=== PATIENT | male | born 1985 | race Caucasian/White ===

== ENCOUNTER 2020-08-05 17:25 | Emergency (ER) | payer MEDICAID, SELFPAY ==
[2020-08-05 17:45] VITALS: BP 113/59; PULSE 70; RESP 18; TEMP 37.5; O2SAT 96
--- NOTE | 2020-08-05 17:58 | ED.EYEPROB ---
HPI - Eye Problem General Chief complaint: Eye Problems Stated complaint: fb in right eye Time Seen by Provider: 08/05/20 17:58 Source: patient and RN notes reviewed History of Present Illness HPI Narrative: Patient is a 34-year-old male who presents the urgent care with complaints of a possible foreign body to the right eye. Patient states that he was cutting wood today without eye protection and believes he got something in his eye. Patient states he has tried to flush it out without any improvement. Patient denies of any blunt force trauma to the eye. Denies of any vision changes. No other acute complaints. No acute distress noted. Patient aware of the plan of care. Some parts of this dictation were generated by voice recognition software and may contain typographical and/or grammatical inaccuracies. Related Data Allergies Allergy/AdvReac Type Severity Reaction Status Date / Time No Known Allergies Allergy Verified 08/05/20 18:01 Review of Systems Review of Systems: Narrative: CONSTITUTIONAL: Denies fever, chills, or sweats. EYES: Reports a foreign body in the right eye ENT: Denies rhinorrhea, congestion, sore throat, or otalgia. CARDIOVASCULAR: Denies chest pain, palpitations, or edema. RESPIRATORY: Denies cough or dyspnea. GASTROINTESTINAL: Denies abdominal pain, nausea, vomiting, or diarrhea. GENITOURINARY: Denies dysuria or hematuria. SKIN: Denies rash or itching. MUSCULOSKELETAL: Denies back pain, joint pain, or myalgia. NEUROLOGIC: Denies headache, numbness, or weakness. All other systems reviewed are negative, except as documented in HPI. PMFSH Comments At the time of my signature, I reviewed and agree with the nursing past medical, surgical, social, and family history. There is no relevant family history pertinent to the patient complaint. Exam Narrative: Exam Narrative: GENERAL: This is a well-nourished, well-developed patient, in no apparent distress. HEAD: normocephalic, atraumatic. EYES: PERRL. Sclera clear/white. Vision is grossly intact. Moderate injected conjunctivo-noted to the right without obvious foreign body seen with the naked eye EARS: External ears normal NOSE: External nose normal with no obvious nasal discharge, nares without redness, no rhinorrhea. THROAT: Mucous membranes moist NECK: Neck supple SKIN: warm, intact with no suspicious lesions or rash, good texture and turgor. NEURO: awake, alert, and oriented to person, place and time. There were no obvious focal neurologic abnormalities. EXTREMITIES: No clubbing, cyanosis, or edema. Course Vital Signs Vital signs: Vital Signs Temperature 99.5 F 08/05/20 17:45 Pulse Rate 70 08/05/20 17:45 Respiratory Rate 18 08/05/20 17:45 Blood Pressure 113/59 L 08/05/20 17:45 Pulse Oximetry 96 08/05/20 17:45 Temperature 99.5 F 08/05/20 17:45 Pulse Rate 70 08/05/20 17:45 Respiratory Rate 18 08/05/20 17:45 Blood Pressure 113/59 L 08/05/20 17:45 Pulse Oximetry 96 08/05/20 17:45 Reviewed Procedures FB Removal Eye Foreign Body #1: Location: eye (R) Topical anesthetic used: tetracaine Foreign body: wood Evidence of corneal penetration: No Technique: irrigation and cotton tip swab Procedure performed under: other (Blacklight) Patient tolerated procedure: well Foreign Body Removal Narrative: I irrigated prior to procedure, tetracaine and fluorescein applied. Small speck of foreign body removed from the right eye with a Q-tip. Irrigated post procedure. Patient tolerated well and has full relief of pain. Very small 0.25 cm possible corneal abrasion to the medial right of the iris. No corneal penetration. Procedure successful MDM - Eye Problem MDM Narrative Medical decision making narrative: Advised the patient to use the eyewash once a day for the next few days. Use the eyedrops to the right eye as directed. Make sure to wear safety glasses in the future while doing any
== END 2020-08-05 18:20 | disposition home or self-care (01) ==
PROVIDERS: Emergency Provider Nurse Practitioner Family; PCP Family Medicine
DX: S05.01XA Injury of conjunctiva and corneal abrasion without foreign body, right eye, initial encounter (principal); X58.XXXA Exposure to other specified factors, initial encounter; T15.91XA Foreign body on external eye, part unspecified, right eye, initial encounter
CPT/HCPCS: 65205; 99213; A9270; G0463

== ENCOUNTER 2025-09-18 15:19 | Emergency (ER) | payer BC, SELFPAY ==
--- OUTSIDE RECORDS SUMMARY | 2002-12-01 04:45 | XMS_ITS | Continuity of Care Document ---
Author Organization [facility] Address [address] [place] [address] Phone Care Team Providers Care Key Account Coordinator Name Role Phone Ibarra OD, Quinton Unavailable Unavailable Advance Directives Directive Yes / No Effective Date File Name No Information Encounters Encounter Description Practice Location Reason(s) For Visit Diagnoses Date Provider Providers Copied on Encounter [facility], [address], [place], [place], [id number], [place] tel:[phone] [facility] No Information 1-200 3 Ibarra OD Quinton. [address] , [address], [place], [address], [place]. tel:[phone] Family History Family Member Type Diagnosis Age At Onset No Information Payers Payer name Insurance type Covered republican ID Authoriza tion(s) Medicaid [facility] [id number] Social History Type Description Quantity Date Captured Comments Sex Male Smoking Status No Information Chief Complaint And Reason For Visit No Information Reason For Referral Reason For Referral No Information History Of Present Illness Encounter Date Complaint History Of Prese nt Illness No Information Functional Status Date Functional Assessmen t No Information Instructions Date Instruction Additional Infor mation No Information Assessments Type Assessment Date No Information Patient Care Teams Name Effective Dates (start - stop) Status Members No Information
--- OUTSIDE RECORDS SUMMARY | 2002-12-01 04:45 | XMS_ITS | Continuity of Care Document ---
Author Organization [facility] Address [address] [place] [address] Phone Care Team Providers Care Sanitation Lead Name Role Phone Ibarra OD, Quinton Unavailable Unavailable Advance Directives Directive Yes / No Effective Date File Name No Information Encounters Encounter Description Practice Location Reason(s) For Visit Diagnoses Date Provider Providers Copied on Encounter [facility], [address], [place], [place], [id number], [place] tel:[phone] [facility] No Information 1-200 3 Ibarra OD Quinton. [address] , [address], [place], [address], [place]. tel:[phone] Family History Family Member Type Diagnosis Age At Onset No Information Payers Payer name Insurance type Covered constitution party ID Authoriza tion(s) Medicaid [facility] [id number] Social History Type Description Quantity Date Captured [...]
--- OUTSIDE RECORDS SUMMARY | 2018-05-09 06:15 | XMS_ITS | Continuity of Care Document ---
Author Organization [facility] Address [address] [facility] [address] [place] [address] Phone Care Team Providers Care Associate Professor Name Role Phone Collin Sarah MD Unavailable Unavailable Allergies, Adverse Reactions, Alerts Substance Reaction Status Criticality No Known Drug Allergies Active No I nformation Medications Medication Instructions Dosage Effective Dates (start - stop) Status Comments hydrocodone 5 mg-acetaminophen 325 mg tablet take 1 - 2 by Oral route q 4-6 hr prn 1-2 - Active ibuprofen 200 mg tablet take 1 tablet by oral route every 6 hours as needed with food 200 MG - Active Naprosyn 500 mg tablet take 1 tablet by oral route 2 times every day with food 500 MG - No Longer Active Procedures Procedure Date Supplemental Report Office/outpatient visit,est, mod 2017 Flex Bar Yellow Supplemental Report Office/outpatient visit,est, mod 2017 Supplemental Report Office/outpatient visit,est, mod 2017 Supplemental Report Office/outpatient visit,est, mod 2017 Office/outpatient visit,est, mod 2017 Supplemental Report Global/Postop followup visit Supplemental Report 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 msclgrp Depo Medrol Methylprednisolone 40 MG inj Global/Postop followup visit Supplemental Report Injection, tendon origin/insertion Depo Medrol Methylprednisolone 40 MG inj Supplemental Report Global/Postop followup visit Supplemental Report Global/Postop followup visit Supplemental Report Global/Postop followup visit Monroe Wrap 3 Gauze <= 16 sq in w/border 2x3 17 Supplemental Report Office/outpatient visit,est, mod 2016 Supplemental Report Office/outpatient visit,est, mod 2016 X-ray exam elbow, 3+ views Office consultation, moderate 7 Injection, tendon origin/insertion Injection, tendon origin/insertion Depo Medrol Methylprednisolone 40 MG inj Advance Directives Directive Yes / No Effective Date File Name No Information Encounters Encounter Description Practice Location Reason(s) For Visit Diagnoses Date Provider Providers Copied on Encounter Office/outpat ient visit,est, [facility], [address] [place] [address], [id number], [place] tel:[phone] [facility] R ELBOW (chief complaint) Lateral epicondylitis , right elbow 8 Keara Polanco. [address] [place] [address], [id number] , [place]. tel:[phone] Referring Provider: Collin Aguirre, [address] [place] [address], [address] . tel:[phone] Office/outpat ient visit,est, [place] [facility], [address] [place] [address], [id number], [place] tel:[phone] [facility] right elbow (chief complaint) Lateral epicondylitis , right elbow 8 Keara Polanco. [address] [place] [address], [address], [id number] , [place]. tel:[phone] Office/outpat ient visit,est, [facility], [address] [address], [place], [place], [id number], [place] tel:[phone] [facility] RIGHT ELBOW (chief complaint) Lateral epicondylitis , right elbow Apr-1 1-201 8 Keara Collin. [address] [facility] [address], [place], [place], [id number] , [place]. tel: [phone] Office/outpat ient visit,est, [facility], [address] [address], [place], [place], [id number], [place] tel:[phone] [facility] r elbow (chief complaint) Pain in right elbowLateral epicondylitis , right elbowLesion of radial nerve, right upper limb Apr-0 5-201 8 Keara Collin. [facility], [address], [id number] , [place]. tel: [phone] Office/outpat ient visit,est, [facility], [address] [address], [place], [place], [id number], [place] tel:[phone] [facility] r elbow (chief complaint) Lateral epicondylitis , right elbow Feb-0 6-201 8 Sarah Collin. [address] [place] [address], [address] [address], [place], [place], [id number] , [place]. tel: [phone] [facility], [address] [place] [address], [id number], [place] tel:[phone] [facility] RIGHT ELBOW (chief complaint) Lesion of radial nerve, right upper limbLateral epicondylitis , right elbowPain in right elbow Jabari-0 4-201 8 Keara Collin. [address] [place] [address], [address], [id number] , [place]. tel: [phone] [facility], [address] [place] [address], [id number], [place] [phone] [facility] right elbow (chief complaint) Pain in right elbowLesion of radial nerve, right upper limbLateral epicondylitis , right elbow Dec-0 6-201 7 Keara Polanco. [address] [facility], [address], [place], [place], [id number] , [place]. tel: [phone] [facility], [address] [address], [place], [place], [id number], [place] tel:[phone] [facility] R ELBOW (chief complaint) Pain in right elbowLateral epicondylitis , right elbowLesion of radial nerve, right upper limb Nov-2 7 Keara Polanco. [address] [facility], [address], [place], [place], [id number] , [place]. tel: [phone] [facility], [address] [address], [place], [place], [id number], [place] tel:[phone] [facility] Lesion of radial nerve, right upper limbPain in right elbowLateral epicondylitis , right elbow Oct-3 7 Keara Polanco. [address] [facility], [address] [address], [place], [place], [id number] , [place]. tel: [phone] [facility], [address], [id number], [place] tel:[phone] [facility] R FOREARM (chief complaint) Lesion of radial nerve, right upper limb Aug- 7 Keara Polanco. [address] [facility], [facility] [address], [place], [place], [id number] , [place]. tel: [phone] Office/outpat ient visit,est, [facility], [address] [address], [place], [place], [id number], [place] tel:[phone] [facility] R THUMB (chief complaint) Pain in right elbowLesion of radial nerve, right upper limbLateral epicondylitis , right elbow Sep-2 7 Keara Polanco. [address] [facility], [facility] [address], [place], [place], [id number] , [place]. tel: [phone] Office/outpat ient visit,est, mod [facility], [address] [place], [id number], tel:[phone] [facility] right elbow (chief complaint) Lesion of radial nerve, right upper limb Keara Polanco. [address] [facility], [address] [address], [place], [place], [id number] , [place]. tel:[phone] Office consultation, moderate [facility], [address], [id number], tel:[phone] [facility] r elbow (chief complaint) Pain in right elbowLateral epicondylitis , right elbowLesion of radial nerve, right upper limb Keara Polanco. [address] [place] [address], [place], [place], [id number] , [place]. tel:[phone] Referring Provider: Collin Aguirre, [address] [place] [address], [place], [address] . tel:[phone] Family History Family Member Type Diagnosis Age At Onset Father Problem (finding) hypertension Mother Problem (finding) malignant neop lasm of breast in first degree relative Father Problem (finding) seizure disorder Father Problem (finding) Arthritis Father Problem (finding) Cardiovascular disease Payers Payer name Insurance type Covered constitution party ID Authoraugiea kyle(s) [employer] [id number] Social History Type Description Quantity Date Captured Comments Alcohol Use Details Unknown Caffeine Use Details Unknown Tobacco Use Status No Information Smoking Status No Information Sex Male Chief Complaint And Reason For Visit From encounter dated '05/09/2018 11:15'. R ELBOW (chief complaint). Description: F/U RIGHT ELBOW EVALUATION Reason For Referral Reason For Referral No Information Plan Of Treatment Date Type Action Status Referral Ordered: MRI Upper extr joint, w/o contrast RT elbow Appointment date/timeframe: 02/24/2018 ordered Referral Ordered: EMG NCS RT arm Appointment date/timeframe: 08/15/2017 ordered Referral Ordered: X-ray exam elbow, 3+ views RT ordered History Of Present Illness Encounter Date Complaint History Of Prese nt Illness R ELBOW F/U RIGHT ELBOW EVALUATION right elbow f/u evaluation RIGHT ELBOW F/U TEST RESULTS r elbow f/u evaluation r elbow r elbow RIGHT ELBOW F/U EVALUATION right elbow right elbow R ELBOW R FOREARM BANDAGE CHANGE R THUMB PATIENT DOING WE LL right elbow right elbow pain r elbow Functional Status Date Functional Assessmen t No Information Instructions Date Instruction Additional Infor mation No Information Assessments Type Assessment Date assessment Lateral epicondylitis, right elb ow Patient Care Teams Name Effective Dates (start - stop) Status Members No Information
--- OUTSIDE RECORDS SUMMARY | 2018-05-09 06:15 | XMS_ITS | Continuity of Care Document ---
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 [address] [place] [address], [id number] , [place]. tel:[phone] Referring Provider: Collin Aguirre, [address] [place] [address], [address] . tel:[phone] Office/outpat ient visit,est, [employer] [facility], [address] [place] [address], [id number], [place] tel:[phone] [facility] right elbow (chief complaint) Lateral epicondylitis , right elbow 8 Keara Polanco. [address] [place] [address], [address], [id number] , [place]. tel:[phone] Office/outpat ient visit,est, [facility], [address] [address], [place], [place], [id number], [place] tel:[phone] [facility] RIGHT ELBOW (chief complaint) Lateral epicondylitis , right elbow Apr-1 1-201 8 Keara Collin. [address] [facility], [address] [address], [place], [place], [id number] , [place]. tel: [phone] Office/outpat ient visit,est, [facility], [address] [address], [place], [place], [id number], [place] tel:[phone] [facility] r elbow (chief complaint) Pain in right elbowLateral epicondylitis , right elbowLesion of radial nerve, right upper limb Apr-0 5-201 8 Keara Collin. [facility], [address], [id number] , [place]. tel: [phone] Office/outpat ient visit,est, [facility], [address] [address], [place], [place], [id number], [place] tel:[phone] [facility] r elbow (chief complaint) Lateral epicondylitis , right elbow Feb-0 6-201 8 Sarah Collin. [address] [place] [address], [address] [address], [place], [place], [id number] , [place]. tel: [phone] [facility], [address] [place] [address], [id number], [place] tel:[phone] [facility] RIGHT ELBOW (chief complaint) Lesion of radial nerve, right upper limbLateral epicondylitis , right elbowPain in right elbow Jabari-0 4-201 8 Keara Collin. [address] [place] [address], [address], [id number] , [place]. tel: [phone] [facility], [address] [place] [address], [id number], [place] [phone] [facility] right elbow (chief complaint) Pain in right elbowLesion of radial nerve, right upper limbLateral epicondylitis , right elbow Dec-0 6-201 7 Keara Polanco. [address] [facility], [address], [place], [place], [id number] , [place]. tel: [phone] [facility], [address] [address], [place], [place], [id number], [place] tel:[phone] [facility] R ELBOW (chief complaint) Pain in right elbowLateral epicondylitis , right elbowLesion of radial nerve, right upper limb Nov-2 7 Keara Polanco. [address] [facility], [address], [place], [place], [id number] , [place]. tel: [phone] [facility], [address] [address], [place], [place], [id number], [place] tel:[phone] [facility] Lesion of radial nerve, right upper limbPain in right elbowLateral epicondylitis , right elbow Oct-3 7 Keara Polanco. [address] [facility], [address] [address], [place], [place], [id number] , [place]. tel: [phone] [facility], [address], [id number], [place] tel:[phone] [facility] R FOREARM (chief complaint) Lesion of radial nerve, right upper limb Aug- 7 Keara Polanco. [address] [facility], [facility] [address], [place], [place], [id number] , [place]. tel: [phone] Office/outpat ient visit,est, [facility], [address] [address], [place], [place], [id number], [place] tel:[phone] [facility] R THUMB (chief complaint) Pain in right elbowLesion of radial nerve, right upper limbLateral epicondylitis , right elbow Sep-2 7 Keara Polanco. [address] [facility], [facility] [address], [place], [place], [id number] , [place]. tel: [phone] Office/outpat ient visit,est, mod [facility], [address] [place], [id number], tel:[phone] [facility] right elbow (chief complaint) Lesion of radial nerve, right upper limb Keara Polanco. [address] [facility], [address] [address], [place], [place], [id number] , [place]. tel:[phone] Office consultation, moderate [facility], [address], [id number], tel:[phone] [facility] r elbow (chief complaint) Pain in right elbowLateral epicondylitis , right elbowLesion of radial nerve, right upper limb Keara Polanco. [address] [place] [address], [place], [place], [id number] , [place]. tel:[phone] Referring Provider: Collin Aguirre, [address] [place] [address], [place], [address] . tel:[phone] Family History Family Member Type Diagnosis Age At Onset Father Problem (finding) hypertension Mother Problem (finding) malignant neop lasm of breast in first degree relative Father Problem (finding) seizure disorder Father Problem (finding) Arthritis Father Problem (finding) Cardiovascular disease Payers Payer name Insurance type Covered constitution party ID Authoraugiea kyle(s) [employer] [id number] Social History Type Description Quantity Date Captured [...]
[2025-09-18 15:27] VITALS: BP 137/75; PULSE 60; RESP 18; TEMP 36.9; O2SAT 99
--- NOTE | 2025-09-18 15:37 | ED.URI ---
HPI - URI/Sore Throat General Chief Complaint: Upper Respiratory Infection Stated Complaint: Sore Throat Time Seen by Provider: 09/18/25 15:37 Source: patient and RN notes reviewed Mode of arrival: ambulatory Limitations: no limitations History of Present Illness HPI Narrative: 39-year-old male presents concern for 2 week history of sore throat, pus on his tonsils. Reports he took leftover cephalexin for 8 days with mild improvement but not full relief. He denies any difficulty swallowing or fever. MD elicited complaint: sore throat Related Data Allergies Allergy/AdvReac Type Severity Reaction Status Date / Time No Known Allergies Allergy Verified 09/18/25 15:35 Review of Systems Review of Systems: CONSTITUTIONAL: Denies malaise, chills, sweats, or fever. EYES: Denies visual changes, redness, or discharge. ENT: Denies rhinorrhea, congestion, sinus pain, otalgia. Reports sore throat. CARDIOVASCULAR: Denies chest pain, palpitations, or edema. RESPIRATORY: Denies cough. Denies dyspnea. GASTROINTESTINAL: Denies abdominal pain, nausea, vomiting, diarrhea SKIN: Denies rash or itching. MUSCULOSKELETAL: Denies myalgia. NEUROLOGIC: Denies headache. All systems reviewed & are unremarkable except as noted in HPI and below PMFSH Comments At time of signature, agree with nursing past medical, surgical, social and family history. There is no relevant family history pertinent to the presenting complaint Exam Narrative: GENERAL: Well-appearing, well-nourished, and in no acute distress. HEAD: Normocephalic EYES: PERRLA, conjunctivae clear ENT: Nares clear. Mucous membranes moist. TM pearly crews with sharp light reflex bilaterally; no tragal tenderness. Oropharynx erythematous without lesions. Tonsils mildly enlarged and without exudate, no drooling, no hoarseness, no trismus, uvula midline. NECK: Supple. No lymphadenopathy CHEST: Clear to auscultation, breath sounds equal. No wheezing, rhonchi, rales, or stridor. No respiratory distress, speaks in full sentences. HEART: Regular rate and rhythm. No murmur heard. SKIN: Warm, dry, no rash. NEURO: Alert and oriented x3. PSYCH: Normal mood and affect Course Course Emergency Course: Patient is aware of diagnosis, understands and agrees to treatment plan. Anticipatory guidance given. Patient agrees to follow-up as directed and is aware of reasons to seek care at the emergency department. Portions of this record may have been created with voice recognition software Level of Care: Express Care Visit Vital Signs Vital signs: Vital Signs Temperature 98.4 F 09/18/25 15:27 Pulse Rate 60 09/18/25 15:27 Respiratory Rate 18 09/18/25 15:27 Blood Pressure 137/75 09/18/25 15:27 Pulse Oximetry 99 09/18/25 15:27 Oxygen Delivery Room Air 09/18/25 15:27 Temperature 98.4 F 09/18/25 15:27 Pulse Rate 60 09/18/25 15:27 Respiratory Rate 18 09/18/25 15:27 Blood Pressure 137/75 09/18/25 15:27 Pulse Oximetry 99 09/18/25 15:27 Oxygen Delivery Room Air 09/18/25 15:27 Reviewed. MDM - URI/Sore Throat MDM Narrative Medical decision making narrative: Differential diagnosis considered: Matthews virus, strep pharyngitis, allergic rhinitis, upper respiratory tract infection, sinusitis, rhinosinusitis, nasopharyngitis. viral pharyngitis, otitis media, otitis externa, pneumonia, bronchitis, viral cough syndrome, viral syndrome, and influenza. Exam findings show no acute concerns or changes; patient is non-toxic appearing and is in no distress. Patient is appropriate for outpatient treatment and follow-up. Lab Data Attestation: I reviewed the patient's lab results. Critical Care Time Critical Care Time Critical Care Time: No Discharge Plan Discharge Clinical Impression: Acute streptococcal pharyngitis Patient Disposition: Home Condition: Stable Instructions: Antibiotic Form, Strep Throat (ED) Additional Instructions: -Take the medication as prescribed. Throw away the toothbrush after 24hours of antibiotic. -Eat and drink things that are easy to swallow, like tea or soup, or popsicles to suck on. -Oral rinses such as: Salt water gargles and/or may use topical anesthetic (eg. Chloraseptic spray) or lozenges to relieve dryness or throat pain). -Take Tylenol and ibuprofen as needed for pain and fever as directed. -Frequent hand washing or hand psychiatric assistant is one of the best ways to prevent spread of infection. -Follow up with primary care provider in 2-3 days if condition is not improving; or seek ER visit if you have trouble breathing, cannot drink enough fluids, have muffled voice, difficulty opening your mouth, or severe swelling. Patient Language: Serbian Prescriptions: New amoxicillin-pot clavulanate 875-125 mg tablet 1 tablet PO Q12H 10 Days Qty: 20 0RF Follow-up/Referrals: Juni,GRACE Nur [Primary Care Provider, Unknown] Stand Alone Forms: Work/School Release IP Time of Disposition: 15:54
[2025-09-18 15:46] LABS: EDSTREPNEGPOS1 Positive (Negative)
--- OUTSIDE RECORDS SUMMARY | 2025-09-18 17:21 | XMS_ITS | Clinical Summary ---
Author Organization [facility] Address [address] [place] [address] Care Team Providers Care Bankruptcy Paralegal Name Role Phone Nita Hardin MD Primary Care Provider Source Comments [facility],non-owned Affiliates and Associated Physician Practices is amultiple site organization consisting of ambulatory clinics and hospital sitesin [place], [place], [place] and [place]. This disclosure is being madepursuant to the Care Everywhere program and may not contain all information available regarding this patient. Last updated 18.[facility] Allergies No known active allergies Medications * Be aware that medications may not be up to date on this document. Alwaysverify current medications with the patient. dexlansoprazole (DEXILANT) 60 MG capsule Take 60 mg by mouth daily. Active omeprazole (PRILOSEC) 40 MG capsuleIndicati ons:GERD (gastroesophage al reflux disease) Take 1 Cap by mouth daily before dinner. 30 Cap 3 01/24/2012 Active ketorolac (Toradol) 10 MG tablet Take 1 (one) tablet by mouth every 6 hours as needed for Pain 20 tablet 07/10/2023 Active lidocaine (Aspercreme Lidocaine) 4 % patch Apply 1 (one) patch to skin once daily Apply patch to most painful area and remove after 12 hours. May reapply a new patch 12 hours later. 12 patch 07/10/2023 Active Social History Tobacco Use Types Packs/Day Years Used Date Smoking Tobacco: Never Smokeless Tobacco: Never Alcohol Use Standard Drinks/Week Comments No 0 (1 standard drink = 0.6 oz pur e alcohol) Sex and Gender Information Value Date Recorded Sex Assigned at Not on file Legal Sex Male 9:44 AM [employer] Gender Identity Not on file Sexual Orientation Not on file Last Filed Vital Signs Vital Sign Reading Time Taken Comments Blood Pressure 141/71 07/10/2023 7:04 AM CDT Pulse 73 07/10/2023 7:04 AM CDT Temperature 36.6 C (97.8 F) 07/10/2023 7:04 AM CDT Respiratory Rate 18 07/10/2023 7:04 AM CDT Oxygen Saturation 98% 07/10/2023 7:04 AM CDT Inhaled Oxygen Concentration - - Weight 81.6 kg (180 lb) 07/10/2023 3:38 AM CDT Height 180.3 cm (5' 11) 07/10/2023 3:38 AM CDT Body Mass Index 25.1 07/10/2023 3:38 AM CDT Plan of Treatment Health Maintenance Due Date Last Done Comments HIV SCREENING 2002 HEPATITIS C SCREENING 10/08/2005 DTAP/TDAP/TD VACCINES (1 - Tdap) 2006 HEPATITIS B VACCINE (1 of 3 - 19+ 3-dose series) 2006 HPV VACCINE (1 - 3-dose SCDM series) 2014 DEPRESSION SCREENING 11/21/2024 COVID-19 VACCINE (1 - 2023-2 5 season) 2025 INFLUENZA VACCINE (#1) 2025 ZOSTER VACCINE (1 of 2) 2037 HIB VACCINE Aged Out No longer eligi ble based on patient's age to complete this topic MENINGOCOCCAL (Group B) VACC INE SHARED DECISION-MAKING Aged Out No longer eligibl e based on patient's age to complete this topic MENINGOCOCCAL GROUPS A/C/Y/W VACCINE Aged Out No longer eligible b ased on patient's age to complete this topic PNEUMOCOCCAL VACCINE Aged Out No long er eligible based on patient's age to complete this topic Insurance MEDICAID [facility] [place] [facility] [place] Care Teams Bankruptcy Paralegal Relationship Specialty Start Date End Date Nita Hardin MD PCP - General Internal Medicine 11/30/10
== END 2025-09-18 16:01 | disposition home or self-care (01) ==
PROVIDERS: Emergency Provider Nurse Practitioner; PCP Physician Assistant Medical
DX: J02.0 Streptococcal pharyngitis (principal)
CPT/HCPCS: 87880; 99213; G0463